=== PATIENT | male | born 1935 | race Caucasian/White ===

== ENCOUNTER 2018-10-06 09:15 | Emergency (ER) | payer MEDICARE, BC ==
[~2018-10-06] VITALS: Ht 180.3 cm; Wt 100.0 kg
[2018-10-06 12:30] VITALS: BP 180/90
[2018-10-06] MEDS ORDERED: TETanus/Pertussis (Acell)/Diphther VAC/PF (Tdap-Adult) 0.5ml syringe IMVAC ONE (12:55)
== END 2018-10-06 13:05 | disposition home or self-care (01) ==
LOC: ER 09:16
DX: I11.0 Hypertensive heart disease with heart failure (principal); I50.9 Heart failure, unspecified; H91.91 Unspecified hearing loss, right ear
CPT/HCPCS: 90471; 90715; 93005; 99284

== ENCOUNTER 2018-11-30 06:43 | Day surgery (SDC) | payer MEDICARE, BC ==
[2018-11-29 13:41] LABS: BASOPHILS # (AUTO) 0.1 X10'3 (0-0.2); BASOPHILS % (AUTO) 0.8 % (0-1); EOSINOPHILS # (AUTO) 0.2 X10'3 (0-0.9); EOSINOPHILS % (AUTO) 2.3 % (0-6); HEMATOCRIT 39.2 % (42.0-52.0); HEMOGLOBIN 13.7 g/dl (14.0-17.9); LYMPHOCYTES # (AUTO) 1.8 X10'3 (1.1-4.8); LYMPHOCYTES % (AUTO) 24.6 % (21-51); MEAN CORPUSCULAR HEMOGLOBIN 31.9 PG (27.0-31.0); MEAN CORPUSCULAR HGB CONC 34.9 g/dL (33.0-36.5); MEAN CORPUSCULAR VOLUME 91.3 FL (78-98); MEAN PLATELET VOLUME 8.5 FL (7.4-10.4); MONOCYTES # (AUTO) 0.5 X10'3 (0-0.9); MONOCYTES % (AUTO) 6.9 % (2-12); NEUTROPHILS # (AUTO) 4.7 X10'3 (1.8-7.7); NEUTROPHILS % (AUTO) 65.4 % (42-75); PLATELET COUNT 211 X10'3 (140-440); RED BLOOD COUNT 4.29 X10'6 (4.70-6.10); RED CELL DISTRIBUTION WIDTH 12.6 % (11.5-14.5); WHITE BLOOD COUNT 7.3 X10'3 (4.5-11.0)
[2018-11-29 13:50] LABS: ALBUMIN 3.5 G/DL (3.4-5.0); ANION GAP 4 (8-16); BLOOD UREA NITROGEN 31 MG/DL (7-18); BUN/CREATININE RATIO 18.3 (5.4-32.0); CALCIUM 9.2 MG/DL (8.5-10.1); CHLORIDE 108 MMOL/L (99-107); CREATININE 1.69 MG/DL (0.60-1.10); GLUCOSE 160 MG/DL (70-104); POTASSIUM 3.4 MMOL/L (3.5-5.1); SODIUM 143 MMOL/L (135-145); TOTAL CARBON DIOXIDE 30.6 MMOL/L (24-32); eGFR 39 ML/MIN
[2018-11-29 13:53] LABS: PARTIAL THROMBOPLASTIN TIME 27 SECONDS (22-32)
[2018-11-30] VITALS (13 sets, daily range): BP systolic 123–148; BP diastolic 56–67
[~2018-11-30] VITALS: Ht 180.3 cm; Wt 100.1 kg
[2018-11-30] MEDS ORDERED: diphenhydrAMINE 25mg capsule PO PRN (07:05)
[2018-11-30] MEDS ORDERED: normal saline 1,000 ML IV SCH (07:05)
[2018-11-30] MEDS ORDERED: LORazepam 0.5 MG tablet PO PRN (07:05)
[2018-11-30] MEDS ORDERED: ALLO100T PO (07:40)
[2018-11-30] MEDS ORDERED: ATOR20TA PO (07:40)
[2018-11-30] MEDS ORDERED: CHOL50004 PO (07:40)
[2018-11-30] MEDS ORDERED: TRIA1CAP6 PO (07:40)
[2018-11-30] MEDS ORDERED: COLC0.6T69 PO (07:40)
[2018-11-30] MEDS ORDERED: FLO0.4C PO (07:40)
[2018-11-30] MEDS ORDERED: vitamin b12 PO (07:40)
[2018-11-30] MEDS ORDERED: BETA1TAB18 PO (07:40)
[2018-11-30] MEDS ORDERED: AMLO5TAB21 PO (07:40)
[2018-11-30] MEDS ORDERED: LOSA100T57 PO (07:40)
[2018-11-30] MEDS ORDERED: ASPI-611 PO (07:40)
[2018-11-30] MEDS ORDERED: LIDOcaine/PRILOcaine 5gm cream TP ONE (07:45)
[2018-11-30] MEDS: acetylcysteine 200 MG/ml 4ml vial PO SCH ×2 (08:09→16:40)
[2018-11-30] MEDS ORDERED: verapamil 2.5 mg/ml inj IV ONE (08:57)
[2018-11-30] MEDS ORDERED: fentaNYL/PF 50MCG/1 ML 2ML syringe ONE (08:57)
[2018-11-30] MEDS ORDERED: midazolam 2 mg/2 ml injection ONE (08:57)
[2018-11-30] MEDS ORDERED: heparin 1,000unit/ml 10ml vial 10 ML ONE (08:58)
[2018-11-30] MEDS ORDERED: iohexol 350MG/ML 100ml bottle IV ONE (08:58)
[2018-11-30] MEDS ORDERED: nitroGLYCERIN-Tridil 50MG/D5W 250 ML IV ONE (08:58)
[2018-11-30] MEDS ORDERED: iohexol 350 MG/ML 50ML vial IV ONE (08:58)
[2018-11-30] MEDS ORDERED: LIDOcaine 1% (10mg/ml)w/preservative injection 20ml MDV ONE (08:58)
[2018-11-30] MEDS ORDERED: sodium bicarbonate (8.4%) inj. 150 ML in dextrose 5%-water 1,000 ML IV ONE (09:40)
[2018-11-30] MEDS ORDERED: sodium bicarbonate (8.4%) inj. 75 MEQ in dextrose 5% water 500ml 500 ML IV SCH (10:05)
[2018-11-30 16:11] LABS: ISTAT Hct MIX 36 %PCV (42-52); ISTAT O2 SATURATION MIX VENOUS 69 % (60-80); ISTAT SOURCE MIX
[2018-11-30 16:11] LABS: ISTAT HGB ART 12.6 g/dl (14.0-18.0); ISTAT Hct ART 37 %PCV (42-52); ISTAT O2 SATURATION ARTERIAL 95 % (95-98); ISTAT SOURCE ART
== END 2018-11-30 16:50 | disposition home or self-care (01) ==
LOC: SSTAY O 06:43
PROVIDERS: ATTEND Internal Medicine Cardiovascular Disease
DX: I25.10 Atherosclerotic heart disease of native coronary artery without angina pectoris (principal); I50.30 Unspecified diastolic (congestive) heart failure; I35.0 Nonrheumatic aortic (valve) stenosis; I11.0 Hypertensive heart disease with heart failure; M10.9 Gout, unspecified; I27.20 Pulmonary hypertension, unspecified; E78.5 Hyperlipidemia, unspecified; Z79.899 Other long term (current) drug therapy; Z79.82 Long term (current) use of aspirin; Z98.890 Other specified postprocedural states; Z88.8 Allergy status to other drugs, medicaments and biological substances
CPT/HCPCS: 36415; 80048; 82803; 85014; 85025; 85610; 85730; 93005; 93460; 93567; 99152; 99153; C1760; C1769; C1894; J1644; J2001; J2250; J3010; J7030; Q0163; Q9967; A4620; J3490

== ENCOUNTER 2020-08-20 15:54 | Emergency (ER) | payer MEDICARE, BC ==
[~2020-08-20] VITALS: Ht 180.3 cm; Wt 97.7 kg
[~2020-08-20 15:54] MED LIST: ALLO100T PO; AMLO5TAB21 PO; ASPI-611 PO; ATOR20TA PO; BETA1TAB18 PO; CHOL50004 PO; COLC0.6T72 PO; FLO0.4C PO; LOSA100T57 PO; TRIA1CAP6 PO; vitamin b12 PO
[2020-08-20] MEDS ORDERED: normal saline 1000ML IV soln IVB ONE (16:10)
[2020-08-20 16:44] LABS: BASOPHILS # (AUTO) 0.1 X10'3 (0-0.2); BASOPHILS % (AUTO) 0.7 % (0-1); EOSINOPHILS # (AUTO) 0.1 X10'3 (0-0.9); EOSINOPHILS % (AUTO) 1.3 % (0-6); HEMATOCRIT 39.7 % (42.0-52.0); HEMOGLOBIN 13.9 g/dl (14.0-17.9); LYMPHOCYTES # (AUTO) 2.5 X10'3 (1.1-4.8); LYMPHOCYTES % (AUTO) 31.1 % (21-51); MEAN CORPUSCULAR HEMOGLOBIN 32.8 PG (27.0-31.0); MEAN CORPUSCULAR HGB CONC 34.9 g/dL (33.0-36.5); MEAN CORPUSCULAR VOLUME 93.9 FL (78-98); MEAN PLATELET VOLUME 7.7 FL (7.4-10.4); MONOCYTES # (AUTO) 0.4 X10'3 (0-0.9); MONOCYTES % (AUTO) 5.2 % (2-12); NEUTROPHILS # (AUTO) 4.9 X10'3 (1.8-7.7); NEUTROPHILS % (AUTO) 61.7 % (42-75); PLATELET COUNT 311 X10'3 (140-440); RED BLOOD COUNT 4.23 X10'6 (4.70-6.10); RED CELL DISTRIBUTION WIDTH 13.5 % (11.5-14.5)
[2020-08-20 16:52] LABS: ALANINE AMINOTRANSFERASE 20 U/L (12-78); ALBUMIN 4.1 G/DL (3.4-5.0); ALBUMIN/GLOBULIN RATIO 1.3 (1.1-1.5); ALKALINE PHOSPHATASE 65 IU/L (46-116); ANION GAP 11 (8-16); ASPARTATE AMINO TRANSFERASE 20 U/L (10-37); BILIRUBIN,TOTAL 0.6 MG/DL (0.1-1.0); BLOOD UREA NITROGEN 26 MG/DL (7-18); BUN/CREATININE RATIO 16.9 (5.4-32.0); CALCIUM 9.4 MG/DL (8.5-10.1); CHLORIDE 106 MMOL/L (99-107); CREATININE 1.54 MG/DL (0.60-1.10); GLUCOSE 88 MG/DL (70-104); POTASSIUM 3.7 MMOL/L (3.5-5.1); SODIUM 144 MMOL/L (135-145); TOTAL CARBON DIOXIDE 27.1 MMOL/L (24-32); TOTAL PROTEIN 7.2 G/DL (6.4-8.2); eGFR 43 ML/MIN
[2020-08-20 16:55] LABS: TROPONIN I < 0.04 NG/ML (0.0-0.05)
[2020-08-20] MEDS ORDERED: dexamethasone sod phosphate 10mg/ml inj PO STA (17:26)
[2020-08-20] MEDS ORDERED: diazepam inj 5 MG/ML inj. IV ONE (17:30)
[2020-08-20] MEDS ORDERED: magnesium 2GM in 50ml NS 50 ML IV ONE (17:30)
[2020-08-20 18:22] VITALS: BP 183/84
== END 2020-08-20 18:23 | disposition home or self-care (01) ==
LOC: ER 15:55
DX: R42 Dizziness and giddiness (principal); I10 Essential (primary) hypertension; Z85.9 Personal history of malignant neoplasm, unspecified; Z95.0 Presence of cardiac pacemaker; Z98.890 Other specified postprocedural states; Z88.8 Allergy status to other drugs, medicaments and biological substances; Z79.82 Long term (current) use of aspirin; Z79.899 Other long term (current) drug therapy
CPT/HCPCS: 36415; 70450; 71045; 80053; 84484; 85025; 93005; 96365; 96366; 96375; 99285; J1100; J3360; J3475; J7030

== ENCOUNTER 2020-08-23 16:02 | Emergency (ER) | payer MEDICARE, BC ==
[~2020-08-23] VITALS: Ht 180.3 cm; Wt 97.7 kg
--- NOTE | 2020-08-23 17:48 | NUR ---
SMALL AMOUNT OF EAR WAX REMOVED AFTER IRRIGATION
[2020-08-23 18:23] VITALS: BP 161/85
== END 2020-08-23 18:25 | disposition home or self-care (01) ==
LOC: ER 16:03
DX: H61.22 Impacted cerumen, left ear (principal); R42 Dizziness and giddiness; Z95.0 Presence of cardiac pacemaker; Z88.8 Allergy status to other drugs, medicaments and biological substances; Z79.82 Long term (current) use of aspirin; Z79.899 Other long term (current) drug therapy
CPT/HCPCS: 69209; 99283

== ENCOUNTER 2022-10-07 10:32 | Outpatient (CLI) | payer MEDICARE, BC ==
[~2022-10-07 10:32] MED LIST changes: -TRIA1CAP6 PO; +TRIA1CAP88 PO
== END 2022-10-07 23:59 | disposition home or self-care (01) ==
LOC: CARD DIAG 10:32
PROVIDERS: ATTEND Internal Medicine Cardiovascular Disease
DX: I34.81 Nonrheumatic mitral (valve) annulus calcification (principal); I51.7 Cardiomegaly
CPT/HCPCS: 93306

== ENCOUNTER 2023-03-19 07:05 | Day surgery (SDC) | payer MEDICARE, BC ==
[2023-03-15 15:24] LABS: BASOPHILS # (AUTO) 0.1 X10'3 (0-0.2); BASOPHILS % (AUTO) 0.5 % (0-1); EOSINOPHILS # (AUTO) 0.9 X10'3 (0-0.9); EOSINOPHILS % (AUTO) 5.6 % (0-6); LYMPHOCYTES # (AUTO) 3.1 X10'3 (1.1-4.8); LYMPHOCYTES % (AUTO) 19.3 % (21-51); MEAN CORPUSCULAR HEMOGLOBIN 35.8 PG (27.0-31.0); MEAN CORPUSCULAR HGB CONC 33.5 g/dL (33.0-36.5); MEAN CORPUSCULAR VOLUME 106.8 FL (78-98); MEAN PLATELET VOLUME 8.9 FL (7.4-10.4); MONOCYTES # (AUTO) 0.1 X10'3 (0-0.9); MONOCYTES % (AUTO) 0.8 % (2-12); NEUTROPHILS # (AUTO) 11.7 X10'3 (1.8-7.7); NEUTROPHILS % (AUTO) 73.8 % (42-75); PRE OP PLATELET COUNT 359 X10'3 (140-440); RED BLOOD COUNT 3.37 X10'6 (4.70-6.10); RED CELL DISTRIBUTION WIDTH 14.5 % (11.5-14.5)
[2023-03-15 15:26] LABS: PRE OP WHITE BLOOD COUNT 15.8 10'3 (4.8-10.8)
[2023-03-15 15:35] LABS: ALBUMIN 3.8 G/DL (3.4-5.0); ALBUMIN/GLOBULIN RATIO 1.5 (1.1-1.5); ALKALINE PHOSPHATASE 52 IU/L (46-116); BLOOD UREA NITROGEN 44 MG/DL (7-18); BUN/CREATININE RATIO 25.3 (10.0-20.0); CHLORIDE 107 MMOL/L (99-107); CREATININE 1.74 MG/DL (0.60-1.10); PRE OP ALT 20 U/L (30-65); PRE OP ANION GAP 11 (8-16); PRE OP AST 19 U/L (10-37); PRE OP BILIRUB, TOTAL 0.4 MG/DL (0.0-1.0); PRE OP GLUCOSE 119 MG/DL (70-104); PRE OP POTASSIUM 3.6 MMOL/L (3.4-5.1); PRE OP SODIUM 144 MMOL/L (135-145); TOTAL CARBON DIOXIDE 26.5 MMOL/L (24-32); TOTAL PROTEIN 6.4 G/DL (6.4-8.2); eGFR 37 ML/MIN
[2023-03-15 15:43] LABS: PLATELET ESTIMATE NORMAL; TOTAL CELLS COUNTED 100
[2023-03-19] VITALS (7 sets, daily range): BP systolic 144–160; BP diastolic 66–81; PULSE 55–62; RESP 16–18; TEMP 98.1; O2SAT 96–97
[~2023-03-19] VITALS: Ht 177.8 cm; Wt 95.6 kg
[~2023-03-19 07:05] MED LIST changes: -BETA1TAB18 PO; -COLC0.6T72 PO; -FLO0.4C PO; -LOSA100T57 PO; +LOSA100T58 PO; +MECL-231 PO; +VIT1CAPS46 PO; +cefazolin 2gm/D5W 100mL 100 ML IV ONE; +famotidine 20mg tablet PO ONE; +ringers solution, lacted 1,000 ML IV SCH
[2023-03-19 08:53] LABS: ISTAT CREATININE 1.6 mg/dL (0.8-1.3); ISTAT HGB 12.2 g/dl (14.0-17.9); ISTAT IONIZED CALCIUM 1.22 mmol/L (1.03-1.32); ISTAT K 3.7 mmol/L (3.5-5.1); POC BUN/CREATININE RATIO 18.8 (5.4-32.0)
[2023-03-19] MEDS ORDERED: fentaNYL/PF 50MCG/1 ML 2ML syringe ONE (09:55)
[2023-03-19] MEDS ORDERED: midazolam 1 mg/ML 2ml injection ONE (09:56)
[2023-03-19] MEDS ORDERED: LIDOcaine 0.5% (5mg/ml) 50ml vial ONE (09:57)
[2023-03-19] MEDS ORDERED: BUPIVAcaine/PF 2.5 mg/ml (0.25%) 30ml vial ONE (09:59)
[2023-03-19] MEDS ORDERED: hydrALAZINE 20mg/ml inj. IV ONE (10:17)
[2023-03-19] MEDS ORDERED: BUPIVAcaine/PF 2.5 mg/ml (0.25%) 30ml vial IJ ONE (10:48)
[2023-03-19] MEDS ORDERED: flumazenil 0.1 mg/ml inj. IV ONE (10:48)
--- NOTE | 2023-03-19 10:52 | NUR ---
Received from OR via [facility] TO RR 5, accompanied by Anesthesiologist DR PEREZ and report given by Anesthesiolgist. PT PRESENTS WITH 20G LEFT HAND, RIGHT HAND DRESSING CDI, IC PACK PLACED ON RIGHT HAND, [id number] ROOM AIR, LR RUNNING AT 100MLS/HR, VSS. WILL CONTINUE TO MONITOR. Addendum: 03/19/23 at 1108 by Jeanette Avila RN, RN Amended: Links added.
--- NOTE | 2023-03-19 11:42 | NUR ---
I HAVE REVIEWED D/C INSTRUCTIONS WITH PATIENT AND THEY HAVE VERBALIZED UNDERSTANDING OF INSTRUCTIONS. PATIENT D/C HOME WITH ALL BELONGINGS AND GAVE TRANSPORT Addendum: 03/19/23 at 1231 by Jeanette Avila RN, RN Amended: Links added.
== END 2023-03-19 11:42 | disposition home or self-care (01) ==
LOC: PAS 07:05
PROVIDERS: ATTEND Orthopaedic Surgery Hand Surgery
DX: G56.01 Carpal tunnel syndrome, right upper limb (principal); M10.041 Idiopathic gout, right hand; M19.041 Primary osteoarthritis, right hand; I10 Essential (primary) hypertension; E78.5 Hyperlipidemia, unspecified; M17.12 Unilateral primary osteoarthritis, left knee; Z79.899 Other long term (current) drug therapy; Z79.82 Long term (current) use of aspirin; Z85.46 Personal history of malignant neoplasm of prostate; Z95.0 Presence of cardiac pacemaker; Z95.2 Presence of prosthetic heart valve; Z98.890 Other specified postprocedural states; Z88.8 Allergy status to other drugs, medicaments and biological substances; Z72.89 Other problems related to lifestyle; Z82.49 Family history of ischemic heart disease and other diseases of the circulatory system; Z82.5 Family history of asthma and other chronic lower respiratory diseases
CPT/HCPCS: 26115; 36415; 64721; 80047; 80053; 85025; 93005; A6222; J0360; J0690; J2250; J3010; J3490; J7030; J7120; Z7506; Z7512; 85007; 88305; A4215; A6402

== ENCOUNTER 2024-06-26 01:58 | Emergency (ER) | payer MEDICARE, BC ==
[~2024-06-26] VITALS: Ht 180.3 cm; Wt 100.0 kg
[~2024-06-26 01:58] MED LIST changes: -cefazolin 2gm/D5W 100mL 100 ML IV ONE; -famotidine 20mg tablet PO ONE; -ringers solution, lacted 1,000 ML IV SCH
[2024-06-26 02:04] VITALS: TEMP 98.1
[2024-06-26] MEDS: normal saline 1000ml 1,000 ML IV ONE (02:53)
[2024-06-26 02:57] LABS: HEMATOCRIT 23.2 % (42.0-52.0); MEAN CORPUSCULAR HEMOGLOBIN 34.2 PG (27.0-31.0); MEAN CORPUSCULAR HGB CONC 30.1 g/dL (33.0-36.5); MEAN CORPUSCULAR VOLUME 113.4 FL (78-98); MEAN PLATELET VOLUME 12.1 FL (7.4-10.4); RED BLOOD COUNT 2.04 X10'6 (4.70-6.10); RED CELL DISTRIBUTION WIDTH 17.9 % (11.5-14.5)
[2024-06-26 03:14] LABS: PLATELET COUNT 48 X10'3 (140-440)
[2024-06-26 05:01] LABS: TOTAL CELLS COUNTED 100
[2024-06-26 05:03] LABS: EOSINOPHILS % (MANUAL) 1 % (0-6); IMMATURE CELLS 86 % (0-0); LYMPHOCYTES % (MANUAL) 6 % (21-51); MONOCYTES % (MANUAL) 3 % (2-12); NEUTROPHILS % (MANUAL) 4 % (42-75)
[2024-06-26 05:04] LABS: ANISOCYTOSIS 2+; MICROCYTOSIS 2+; PLATELET ESTIMATE DECREASED; STOMATOCYTES 2+
[2024-06-26 05:53] LABS: ALANINE AMINOTRANSFERASE 26 U/L (12-78); ALBUMIN 3.4 G/DL (3.4-5.0); ALBUMIN/GLOBULIN RATIO 1.1 (1.1-1.5); ALKALINE PHOSPHATASE 97 IU/L (46-116); ANION GAP 11 (8-16); ASPARTATE AMINO TRANSFERASE 78 U/L (10-37); BILIRUBIN,TOTAL 0.3 MG/DL (0.1-1.0); BLOOD UREA NITROGEN 44 MG/DL (7-18); BUN/CREATININE RATIO 9.8 (10.0-20.0); CALCIUM 7.7 MG/DL (8.5-10.1); CHLORIDE 110 MMOL/L (99-107); CREATININE 4.47 MG/DL (0.60-1.10); GLUCOSE 125 MG/DL (70-104); SODIUM 147 MMOL/L (135-145); TOTAL CARBON DIOXIDE 26.1 MMOL/L (24-32); TOTAL PROTEIN 6.5 G/DL (6.4-8.2); eCRCL 12 ML/MIN; eGFR 13 ML/MIN
[2024-06-26 05:59] LABS: PRO BRAIN NATRIURETIC PEPTIDE 4226 PG/ML (0-450)
[2024-06-26] MEDS: aspirin 81mg tab.chew PO ONE (06:10)
[2024-06-26 06:26] LABS: CKMB RELATIVE INDEX 1.4 RATIO (0-2.5); CREATINE KINASE 154 U/L (39-308); CREATINE KINASE MB 2.2 ng/ml (0.3-3.6); MAGNESIUM 1.4 MG/DL (1.5-2.4)
[2024-06-26 06:28] LABS: LACTATE DEHYDROGENASE 1740 U/L (85-227); POTASSIUM 3.4 MMOL/L (3.5-5.1); URIC ACID 10.5 MG/DL (3.5-7.2)
[2024-06-26] MEDS: normal saline 1000ML IV soln IVB ONE ×2 (06:59→07:21)
[2024-06-26] MEDS: magnesium sulf-water 2g/50mL 50 ML IV ONE (08:52)
[2024-06-26] MEDS: potassium CL 10mEq/100ml bag 100 ML IV ONE (08:52)
[2024-06-26 09:08] LABS: ALBUMIN 3.1 G/DL (3.4-5.0); ANION GAP 8 (8-16); BLOOD UREA NITROGEN 43 MG/DL (7-18); BUN/CREATININE RATIO 10.3 (10.0-20.0); CALCIUM 7.4 MG/DL (8.5-10.1); CHLORIDE 112 MMOL/L (99-107); CREATININE 4.16 MG/DL (0.60-1.10); GLUCOSE 118 MG/DL (70-104); MAGNESIUM 1.3 MG/DL (1.5-2.4); PHOSPHORUS 3.2 MG/DL (2.3-4.5); POTASSIUM 3.9 MMOL/L (3.5-5.1); SODIUM 143 MMOL/L (135-145); eCRCL 13 ML/MIN; eGFR 14 ML/MIN
[2024-06-26 12:00] VITALS: BP 126/46; PULSE 73; RESP 20; O2SAT 93
== END 2024-06-26 12:20 | disposition admitted as inpatient to this hospital (09) ==
LOC: ER 01:58
DX: G93.41 Metabolic encephalopathy (principal); R55 Syncope and collapse; D75.839 Thrombocytosis, unspecified; D64.9 Anemia, unspecified; C95.00 Acute leukemia of unspecified cell type not having achieved remission; N17.9 Acute kidney failure, unspecified; E86.0 Dehydration; E83.52 Hypercalcemia; E83.42 Hypomagnesemia; E87.6 Hypokalemia; I10 Essential (primary) hypertension; Z88.8 Allergy status to other drugs, medicaments and biological substances; Z95.0 Presence of cardiac pacemaker; Z20.822 Contact with and (suspected) exposure to COVID-19
CPT/HCPCS: 36415; 70450; 71045; 74176; 80048; 80053; 82550; 82553; 83605; 83615; 83735; 83874; 83880; 84100; 84484; 84550; 85007; 85025; 87040; 87077; 87186; 87811; 93005; 96361; 96365; 96366; 96368; 99285; A4314; J3480; J7030; J7040